=== PATIENT | male | born 1985 | race Two or more races ===

== ENCOUNTER 2017-02-28 12:35 | Emergency (ER) | payer MEDICAID ==
[~2017-02-28] VITALS: Ht 182.9 cm; Wt 88.6 kg
[2017-02-28 13:53] VITALS: BP 135/84
== END 2017-02-28 13:57 | disposition home or self-care (01) ==
LOC: EMS 12:37
DX: J06.9 Acute upper respiratory infection, unspecified (principal); R03.0 Elevated blood-pressure reading, without diagnosis of hypertension; J02.9 Acute pharyngitis, unspecified; R51 Headache
CPT/HCPCS: 99282